=== PATIENT | male | born 1995 ===

== ENCOUNTER 2019-01-07 10:30 | Outpatient (CLI) | payer OTHER ==
[~2019-01-07] VITALS: Ht 152.4 cm; Wt 72.6 kg
== END 2019-01-07 10:45 | disposition home or self-care (01) ==
LOC: OFIC 805 10:30
DX: H72.01 Central perforation of tympanic membrane, right ear (principal); H61.23 Impacted cerumen, bilateral; H90.11 Conductive hearing loss, unilateral, right ear, with unrestricted hearing on the contralateral side; H70.11 Chronic mastoiditis, right ear